=== PATIENT | female | born 1995 | race Two or more races ===

== ENCOUNTER 2017-04-10 15:51 | Emergency (ER) | payer OTHER ==
[~2017-04-10] VITALS: Ht 162.6 cm; Wt 63.5 kg
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
--- NOTE | 2017-04-10 16:20 | NUR ---
urine obtained and sent to lab.
[2017-04-10 16:44] LABS: BILIRUBIN,URINE NEGATIVE (NEGATIVE); BLOOD, URINE TRACE Ery/uL (NEGATIVE); COLOR,URINE YELLOW (YELLOW); KETONES,URINE 2+ (NEGATIVE); LEUKOCYTE ESTERASE ,URINE 1+ (NEGATIVE); NITRITE, URINE NEGATIVE (NEGATIVE); PROTEIN,URINE NEGATIVE (NEGATIVE); UGLUCOSE NEGATIVE (NEGATIVE); UROBILINOGEN,URINE 0.2 EU/dL (0.2)
[2017-04-10 17:16] LABS: APPEARANCE,URINE SL CLOUDY (CLEAR)
[2017-04-10 17:20] LABS: BACTERIA,URINE Few /HPF (None Seen); SQUAMOUS EPITHELIAL CELL,UR Many /HPF (None Seen)
[2017-04-10] MEDS ORDERED: CEFTRIAXONE 500 MG VIAL ONE (18:25)
[2017-04-10] MEDS ORDERED: LIDOCAINE /MPF 1% VIAL 5 ML VIAL ONE (18:26)
[2017-04-10] MEDS ORDERED: AZITHROMYCIN 250 MG TABLET ONE (18:27)
[2017-04-10] MEDS ORDERED: AZITHROMYCIN 250 MG TABLET PO ONE (18:30)
[2017-04-10] MEDS ORDERED: CEFTRIAXONE 500 MG VIAL IM ONE (18:30)
[2017-04-10 18:48] VITALS: BP 120/66
== END 2017-04-10 18:48 | disposition home or self-care (01) ==
LOC: ER 15:54
DX: N76.0 Acute vaginitis (principal); R10.2 Pelvic and perineal pain
CPT/HCPCS: 81001; 84703; 87070; 87081; 87086; 87110; 87210; 96372; 99284; A4606; J0696; J3490; Z7610; 81000-TC